=== PATIENT | male | born 1975 | race Caucasian/White ===

== ENCOUNTER → 2016-09-01 | Outpatient (REF) | payer BC, OTHER ==
[2016-09-01 11:56] LABS: IONIZED CALCIUM 4.8 MG/DL (4.5-5.3)
[2016-09-01 12:11] LABS: CALCIUM LEVEL 9.1 MG/DL (8.5-10.1)
== END ==
LOC: M LABDRAW1 11:24
PROVIDERS: ATTEND Physician Assistant Medical
DX: E21.0 Primary hyperparathyroidism (principal)

== ENCOUNTER → 2016-11-01 | Outpatient (CLI) | payer OTHER ==
[~2016-11-01] VITALS: Ht 165.1 cm; Wt 88.0 kg
[~2016-11-01] MED LIST: FLUO40CA PO; LIDOCAINE 2% INJ 100 MG/5 ML SDV (FOR ANES.) As Ordered ONE; NS 1,000 ML IV SCH; POTA4.25 PO; PROPOFOL 200 MG/20 ML VIAL As Ordered ONE; VITA1CAP2 PO; VITA200028 PO
--- NOTE | 2016-11-01 14:15 | ROOR ---
Patient Name: Jorgito Holbrook Procedure Date: 11/01/2016 2:04 PM Date of : 1975 Age: 41 Room: [facility] Gender: Male Note Status: Finalized Procedure: Upper GI endoscopy Indications: Exclusion of celiac disease, Positive/questionable celiac serologies (negative ttg IgA, weakly positive ttg IgG) Providers: Navin FABIAN MD Referring MD: JONNIE SMITH MD, Francisca Pacheco MD Requesting Provider: Medicines: Monitored Anesthesia Care Complications: No immediate complications. Procedure: Pre-Anesthesia Assessment: - The heart rate, respiratory rate, oxygen saturations, blood pressure, adequacy of pulmonary ventilation, and response to care were monitored throughout the procedure. The Endoscope was introduced through the mouth, and advanced to the third part of duodenum. The upper GI endoscopy was accomplished without difficulty. The patient tolerated the procedure well. Findings: The esophagus was normal. The stomach was normal. The examined duodenum was normal. Biopsies for histology were taken with a cold forceps for evaluation of celiac disease. Impression: - Normal esophagus. - Normal stomach. - Normal examined duodenum. Biopsied. Recommendation: - Telephone endoscopist for pathology results in 2 weeks. Navin Fabian MD Navin FABIAN MD 11/01/2016 2:15:03 PM This report has been signed electronically. Number of Addenda: 0 Note Initiated On: 11/01/2016 2:04 PM Estimated Blood Loss: Estimated blood loss: none.
--- NOTE | 2016-11-01 14:24 | ROOR ---
Patient Name: Jorgito Holbrook Procedure Date: 11/01/2016 2:03 PM Date of : 1975 Age: 41 Room: [facility] Gender: Male Note Status: Finalized Procedure: Colonoscopy Indications: Hematochezia Providers: Navin FABIAN MD Referring MD: JONNIE SMITH MD, Francisca Pacheco MD Requesting Provider: Medicines: Monitored Anesthesia Care Complications: No immediate complications. Procedure: Pre-Anesthesia Assessment: - The heart rate, respiratory rate, oxygen saturations, blood pressure, adequacy of pulmonary ventilation, and response to care were monitored throughout the procedure. - The heart rate, respiratory rate, oxygen saturations, blood pressure, adequacy of pulmonary ventilation, and response to care were monitored throughout the procedure. The Colonoscope was introduced through the anus and advanced to 5 cm into the ileum. The colonoscopy was performed without difficulty. The patient tolerated the procedure well. The quality of the bowel preparation was good. Findings: The perianal and digital rectal examinations were normal. Internal hemorrhoids were found during retroflexion. The hemorrhoids were small. A 7 mm polyp was found in the sigmoid colon. The polyp was flat. The polyp was removed with a cold snare. Resection and retrieval were complete. The exam was otherwise without abnormality on direct and retroflexion views. (Exam: Complete, Prep: Good or Excellent.) Impression: - Small Internal hemorrhoids. - One 7 mm polyp in the sigmoid colon, removed with a cold snare. Resected and retrieved. - The examination was otherwise normal on direct and retroflexion views. Recommendation: - Telephone endoscopist for pathology results in 2 weeks. Navin Fabian MD Navin FABIAN MD 11/01/2016 2:24:22 PM This report has been signed electronically. Number of Addenda: 0 Note Initiated On: 11/01/2016 2:03 PM Estimated Blood Loss: Estimated blood loss: none.
[2016-11-01 14:50] VITALS: BP 145/82
== END | disposition home or self-care (01) ==
LOC: M OPP 10:35
PROVIDERS: ATTEND Internal Medicine Gastroenterology
DX: K64.8 Other hemorrhoids (principal); K63.5 Polyp of colon; R76.8 Other specified abnormal immunological findings in serum; E07.9 Disorder of thyroid, unspecified; F33.9 Major depressive disorder, recurrent, unspecified; F41.9 Anxiety disorder, unspecified; Z80.0 Family history of malignant neoplasm of digestive organs; Z79.899 Other long term (current) drug therapy; Z88.8 Allergy status to other drugs, medicaments and biological substances; Z88.0 Allergy status to penicillin